=== PATIENT | female | born 1955 | race Caucasian/White ===

== ENCOUNTER 2019-07-05 06:13 | Inpatient (IN) ==
[2019-07-05] MEDS ORDERED: cefOXitin 2,000 MG in Water for inj. (sterile) 20 ML IVP ONE (06:55)
[2019-07-05] MEDS ORDERED: Albuterol 2.5 MG/3 ML NEBULIZER IH ONE (06:55)
[2019-07-05] MEDS ORDERED: Ketorolac 30 MG/ML VIAL IVP ONE (06:56)
[2019-07-05] MEDS ORDERED: Ringers Solution, Lactated 1,000 ML IVC SCH (07:00)
[2019-07-05] MEDS ORDERED: *HR* Midazolam HCl 2 MG/2 ML VIAL ONE (07:32)
[2019-07-05] MEDS ORDERED: *HR* FentaNYL (PF) 100 MCG/2 ML VIAL ONE (07:32)
[2019-07-05] MEDS ORDERED: *HR* Propofol 200 MG/20 ML VIAL IVP ONE (07:32)
--- NOTE | 2019-07-05 07:45 | History & Physical Report ---
Date of Encounter: 07/05/19 Time of Encounter: 07:45 24 Hour HP Update - Instructions Instructions: If the History and Physical is less than 30 days old and was completed prior to A.M. admission and or procedure and has NOT been updated on calendar day of procedure please complete this update prior to performing procedure. - Update Patient reports changes in Medical Condition: No Changes in examination, assessment, or condition: No Changes in Medication: No Preop tests/diagnostics Reviewed: Yes Pre-Op MRSA Screen: Negative Surgery Remains Indicated: Yes Consent for Planned Operative Procedure(s) Verified: Yes - Pre-Operative Checklist Preoperative Checklist Indicated: Yes Prophylactic Antibiotic Ordered: Yes Home Medications Include Beta Savanna: No Beta Savanna Taken Today (Day of Surgery): No Beta Savanna Taken Yesterday (Day Prior to Surgery): No Is VTE Prophylaxis Indicated?: Yes
[2019-07-05] MEDS ORDERED: Pregabalin 75 MG CAPSULE PO ONE (08:02)
[2019-07-05] MEDS ORDERED: Scopolamine Patch 1.5 MG PATCH.TD72 TD ONE (08:02)
[2019-07-05] MEDS ORDERED: Famotidine 20 MG/2 ML VIAL IVP ONE (08:02)
[2019-07-05] MEDS ORDERED: traMADol 50 MG TABLET PO ONE (08:02)
[2019-07-05] MEDS ORDERED: Celecoxib 200 MG CAPSULE PO ONE (08:02)
[2019-07-05] MEDS ORDERED: Acetaminophen IV 1,000 MG/100 ML INFUS..BTL IVPB ONE (08:03)
--- NOTE | 2019-07-05 08:16 | Anesthesia Evaluation PreOp ---
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: Other (Anxiety/Depression) Other Medical History: Other (Breast Ca s/p Radiation Tx - last Tx 2015) Anesthesia History: No Prior Anesthetic Complications (]), Past Anesthesia (B- breast lumpectomies, L-TKR, Uterine polyp excision, Tubal,) Alcohol Use: none Drug use: none Medications and Allergies Gabapentin [Gralise] 300 mg PO TID 07/25/15 [History] Lisinopril/Hydrochlorothiazide [Zestoretic 20-25 mg Tablet] 1 tab PO DAILY 07/25/15 [History] Pravastatin Sodium [Pravachol] 40 mg PO DAILY 07/25/15 [History] traZODone [TraZODone] 100 mg PO HS 07/25/15 [History] Furosemide [Lasix] 20 mg PO BID 09/01/17 [History] Oxygen 2 l NS DAILY 09/01/17 [History] Albuterol Sulfate [Ventolin Hfa] 2 puff IH Q6H PRN 09/27/17 [History] Aspirin [Lo-Dose Aspirin EC] 81 mg PO DAILY 07/05/19 [History] Magnesium Oxide [Mag-Oxide Magnesium] 400 mg PO BID 07/05/19 [History] Venlafaxine XR (24 HR) [Effexor XR] 150 mg PO DAILY 07/05/19 [History] Allergy/AdvReac Type Severity Reaction Status Date / Time No Known Allergies Allergy Verified 07/05/19 07:08 - Meds/Allergy Pre-op Review Medications Reviewed: Yes Allergies Reviewed: Yes Beta Blockers on Current Med List: No Anesthesia Results - Labs Laboratory Tests 06/15/19 06/15/19 13:40 13:40 Hgb 14.2 Potassium 4.0 - Imaging EKG: report reviewed (92bpm - SINUS RHYTHM Electronically Signed On 06-16-2019 19:58:47 EDT by Darien [place]) Additional studies: ECHO 06/01/2017 Impressions: LVEF 60%. Normal left ventricular size and systolic function. There is evidence of mild diastolic dysfunction of the left ventricle. Normal right ventricular size and function. No significant valvular dysfunction. No pulmonary hypertension. Left Ventricular Wall Motion: Rest Echo Findings All wall segments showed normal motion. 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 Cabrera Angel MD
[2019-07-05] MEDS ORDERED: Dexamethasone 4 MG/ML VIAL ONE (08:22)
[2019-07-05] MEDS ORDERED: Ondansetron 4 MG/2 ML VIAL ONE ×2 (08:22→09:38)
[2019-07-05] MEDS ORDERED: Lidocaine -MPF 2% 2 ML VIAL ONE (08:22)
[2019-07-05] MEDS ORDERED: Lidocaine HCL 4 ML Topical Solution (Laryng-O-Jet Kit Sterile Pak) TP ONE (08:22)
[2019-07-05] MEDS ORDERED: *HR* Morphine Sulfate/PF 10 MG/10 ML AMPUL ONE (08:24)
[2019-07-05] MEDS ORDERED: *HR* HYDROMORPHONE 2 MG/ML VIAL ONE (09:22)
[2019-07-05] MEDS ORDERED: *HR* Succinylcholine 200 MG/10 ML VIAL IVP ONE (09:37)
[2019-07-05] MEDS ORDERED: Neostigmine Methylsulfate 3 MG/3 ML SYRINGE ONE (10:24)
[2019-07-05] MEDS ORDERED: Ketorolac 30 MG/ML VIAL ONE (10:45)
[2019-07-05] MEDS ORDERED: Ipratropium/Albuterol Neb 3 ML IH ONE (10:58)
[2019-07-05] MEDS ORDERED: Ipratropium/Albuterol Neb 3 ML ONE (10:59)
--- NOTE | 2019-07-05 11:08 | OB/GYN Procedure Note ---
Hysterectomy - Diagnosis Date of procedure: 07/05/19 Hysterectomy pre-op: symptomatic leiomyomata Post-op diagnosis: same - Procedure Hysterectomy procedure: total abdominal hysterectomy, bilateral salpingo- oophorectomy, right salpingo oophorectomy Surgeon: Fe Waterman Was there an executive administrative assistant present: Yes Software Development Analyst: Jeannette Fontanez (Assisting for teaching purposes) Anesthesia Type: General Estimated blood loss (cc): 200 Complications: none Fluids: crystalloid Specimens: right ovary, uterus, left ovary, other (Partial cervix) Disposition: floor Narrative: Preoperative diagnosis: Enlarged uterus with symptomatic fibroids, breast cancer postop diagnosis: Same Surgeon: Dr. Waterman Assisting: Dr. Daley for teaching purposes Estimated blood loss: 200 mL Specimen: Uterus, partial uterine cervix, bilateral fallopian tube, bilateral ovaries Findings: Morbid obesity. Enlarged multi-fibroid uterus. Left adnexal adhesions. Procedure: Amber was taken to the operating suite and after adequate general anesthesia was a performed she was prepped and draped in the general sterile fashion. A Pfannenstiel incision was created and taken down through the subcutaneous fat and fascia to rectus muscles. The peritoneum was not in the midline without consequence to the bowel or bladder. A retractor was placed within the abdominal incision and the bowel was packed away with moist laparotomy sponges. Surgery was complicated by morbid obesity. Inspection of the pelvis was performed and findings were noted as above. Bilateral round ligaments were isolated clamped transected and suture ligated. Bilateral infundibulopelvic ligaments were isolated clamped transected and suture ligated. There were filmy adhesions noted on the left adnexa that were gently reduced. The bladder was released off the lower uterine segment. Bilateral uterine arteries were identified clamped transected and suture ligated. Surgery was being complicated again by morbid obesity. The uterosacral ligaments cardinal and broad ligaments were clamped transected and suture ligated. A partial supracervical hysterectomy was performed because of the difficulty with visualization of the pelvis and she had no history of abnormal Pap findings. The uterus was amputated using interrupted clamps and sutures. Excellent hemostasis was maintained. The uterosacral ligaments were attached to bilateral vaginal cuff angles for cuff support. Copious irrigation was performed of the surgical sites were inspected. Hemostasis was assured with combination of interrupted sutures and hemostatic agent. At the end of the procedure all of the instruments were removed. They were counted and ensured to be correct 2. Again copious irrigation was performed. Surgical sites were inspected. Hemostasis was assured. The fascia was closed with PDS. The subcutaneous tissue was reapproximated with interrupted sutures. The skin was closed with blayne. The patient was taken to the postanesthesia care unit in stable condition. We had no intraoperative complications other than her morbid obesity. Again sponge lap needle and a cement counts were all correct 2.
--- NOTE | 2019-07-05 11:55 | Anesthesia Evaluation Post Op ---
Date of Encounter: 07/05/19 Time of Encounter: 11:50 - Vital Signs Vital Signs: Last Vital Signs Temp 97.6 F 07/05/19 11:22 Pulse 100 07/05/19 11:42 Resp 16 07/05/19 11:42 BP 134/63 07/05/19 11:42 Pulse Ox 93 07/05/19 11:42 - Lungs Lungs: Clear Ascult./Percussion - Airway Airway: Non-obstructed - Cardiovascular Regular Rate - Mental Status Mental Status: Alert & Oriented, Answers Appropriately - Pain Pain Scale: 5 Pain Scale used: FatimaRaul (Faces) - Nausea Vomiting Nausea Vomiting: Not Present - Hydration Hydration: Tolerates oral liquids, Ice chips - Discharge PostOp Status: Transfer Patient to floor
[2019-07-05] MEDS ORDERED: Ondansetron 4 MG/2 ML VIAL IVP PRN (12:19)
[2019-07-05] MEDS ORDERED: Sennosides 8.6 MG TABLET PO PRN (12:19)
[2019-07-05] MEDS ORDERED: Naloxone 0.4 MG/ML INJ IVP PRN (12:19)
[2019-07-05] MEDS: Ibuprofen 400 MG TABLET PO SCH ×3 (14:18→21:51)
[2019-07-05] MEDS ORDERED: Ringers Solution, Lactated 1,000 ML ONE (15:16)
[2019-07-05] MEDS ORDERED: ceFAZolin 2,000 MG in Water for inj. (sterile) 10 ML IVP SCH (16:00)
[2019-07-05] MEDS: Ringers Solution, Lactated 1,000 ML IVC SCH (16:10)
[2019-07-05] MEDS: cefOXitin 1,000 MG in Water for inj. (sterile) 10 ML IVP SCH ×2 (16:20→23:32)
[2019-07-05] MEDS: *HR* OxyCODONE/APAP 5/325 TABLET PO PRN ×2 (18:19→22:21)
[2019-07-06] MEDS: Ibuprofen 400 MG TABLET PO SCH ×3 (02:07→11:32)
[2019-07-06] MEDS: Ringers Solution, Lactated 1,000 ML IVC SCH (02:07)
[2019-07-06] MEDS ORDERED: Albuterol 2.5 MG/3 ML NEBULIZER IH ONE (02:12)
[2019-07-06] MEDS: *HR* OxyCODONE/APAP 5/325 TABLET PO PRN (05:55)
--- NOTE | 2019-07-06 06:49 | Discharge Summary ---
Date of Encounter: 07/06/19 Time of Encounter: 06:52 - Discharge Diagnosis (1) Post-operative pain Priority: Primary Status: Acute - Discharge Medications Prescriptions: New OxyCODONE/APAP 5/325 [Percocet 5/325 MG] 1 each PO Q4HR PRN 5 Days #30 tablet PRN Reason: Severe Pain (7-10) Continued Lisinopril/Hydrochlorothiazide [Zestoretic 20-25 mg Tablet] 1 tab PO DAILY Gabapentin [Gralise] 300 mg PO TID Pravastatin Sodium [Pravachol] 40 mg PO DAILY traZODone [TraZODone] 100 mg PO HS Furosemide [Lasix] 20 mg PO BID Oxygen 2 l NS DAILY Albuterol Sulfate [Ventolin Hfa] 2 puff IH Q6H PRN PRN Reason: Dyspnea Aspirin [Lo-Dose Aspirin EC] 81 mg PO DAILY Venlafaxine XR (24 HR) [Effexor XR] 150 mg PO DAILY Magnesium Oxide [Mag-Oxide Magnesium] 400 mg PO BID Home Medications: Gabapentin [Gralise] 300 mg PO TID 07/25/15 [History] Lisinopril/Hydrochlorothiazide [Zestoretic 20-25 mg Tablet] 1 tab PO DAILY 07/25/15 [History] Pravastatin Sodium [Pravachol] 40 mg PO DAILY 07/25/15 [History] traZODone [TraZODone] 100 mg PO HS 07/25/15 [History] Furosemide [Lasix] 20 mg PO BID 09/01/17 [History] Oxygen 2 l NS DAILY 09/01/17 [History] Albuterol Sulfate [Ventolin Hfa] 2 puff IH Q6H PRN 09/27/17 [History] Aspirin [Lo-Dose Aspirin EC] 81 mg PO DAILY 07/05/19 [History] Magnesium Oxide [Mag-Oxide Magnesium] 400 mg PO BID 07/05/19 [History] Venlafaxine XR (24 HR) [Effexor XR] 150 mg PO DAILY 07/05/19 [History] OxyCODONE/APAP 5/325 [Percocet 5/325 MG] 1 each PO Q4HR PRN 5 Days #30 tablet 07/06/19 [Rx] Allergies/Adverse Reactions: Allergy/AdvReac Type Severity Reaction Status Date / Time No Known Allergies Allergy Verified 07/05/19 07:08 Date of admission: 07/05/19 12:02 Primary care physician: Usman Rod MD Discharging clinician: Fe Waterman Anticipated date of discharge: 07/06/19 - Patient Status Disposition: Home, Self-Care Condition: Good Functional capacity at discharge: uses cane/walker Overall status at discharge: patient is progressing back to baseline - Discharge Instructions Follow Up With: Usman Rod MD [Primary Care Provider] - Fe Waterman MD [Partnered Physician] - Additional Instructions: no driving no lifting tylenol, ibuprofen, percocet for pain soft diet until active bowl function fu in office one week take keflex twice per day for five days - Diet and Activity Activity: increase activity as tolerated Diet: advance to your usual diet 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 She was admitted to the hospital for overnight observation. She did very well over the evening. Her catheter was removed. She was voiding without difficulty. She was complaining with a walker. She uses home oxygen was doing the same in the hospital. She was passing gas and tolerating liquids. She was taking pain medicines by mouth. She is discharged home with good support family members there to take care of her. She will follow-up in the office in 1 week have the blayne removed. Upon discharge she was given a prescription for Percocet for continued pain management. She will see use Tylenol and ibuprofen. She was given Keflex for 5 days. She had no intrahospital competitions. Time Attestation: Total time spent providing and/or coordinating discharge services: Time Spent: Greater than 30 minutes Exam - Constitutional Vitals: Temp Pulse Resp BP Pulse Ox 99.1 F 99 20 111/70 91 07/06/19 05:53 07/06/19 05:53 07/06/19 05:53 07/06/19 05:53 07/06/19 05:53 General appearance IM: A&O X 3, pleasant, no acute distress, answers questions appropriately - Respiratory Respiratory exam: Present: CTAB - Cardiovascular Cardiovascular exam IM: Present: RRR - GI/Abdominal GI/Abdominal exam IM: distended, normal bowel sounds, soft Incision: dry, intact - Extremities Exam Extremities exam IM: Present: full ROM, normal inspection - VTE Documentation of Mechanical Device: Intermittent pneumatic compression device
[2019-07-06 08:09] VITALS: BP 115/70
[2019-07-06] MEDS: cefOXitin 1,000 MG in Water for inj. (sterile) 10 ML IVP SCH (08:15)
[2019-07-06] MEDS ORDERED: Simethicone 80 MG TAB.CHEW PO PRN (12:34)
[2019-07-06] MEDS ORDERED: FLU Vac QV 19-20 (6Month+)/PF 0.5 ML SYRINGE IM ONE (16:04)
== END 2019-07-06 16:41 | disposition home or self-care (01) | DRG 519 ==
LOC: SAMDAY 06:13 → 1NENUPED 12:02
PROVIDERS: ADMIT Obstetrics & Gynecology; ATTEND Obstetrics & Gynecology

== ENCOUNTER 2021-08-14 06:32 | Inpatient (IN) ==
[2021-08-14] MEDS ORDERED: Acetaminophen IV 1,000 MG/100 ML BAG IVPB ONE (07:02)
[2021-08-14] MEDS ORDERED: Famotidine 20 MG/2 ML VIAL IVP ONE (07:02)
[2021-08-14] MEDS ORDERED: Gabapentin 300 MG CAPSULE PO ONE (07:02)
[2021-08-14] MEDS ORDERED: CeFAZolin Syr 2,000MG/20 ML 2,000 MG/20 ML SYRINGE IVPB ONE (07:08)
[2021-08-14] MEDS ORDERED: Ondansetron 4 MG/2 ML VIAL IVP PRN ×2 (07:14→12:03)
[2021-08-14] MEDS ORDERED: Ringers Solution, Lactated 1,000 ML IVC SCH (07:15)
[2021-08-14] MEDS ORDERED: *HR* FentaNYL (PF) 100 MCG/2 ML VIAL ONE ×2 (07:26→07:28)
[2021-08-14] MEDS ORDERED: Ondansetron 4 MG/2 ML VIAL ONE (07:26)
[2021-08-14] MEDS ORDERED: Lidocaine HCL 4 ML Topical Solution (Laryng-O-Jet Kit Sterile Pak) TP ONE (07:26)
[2021-08-14] MEDS ORDERED: Lidocaine -MPF 4% 5 ML AMPUL ONE (07:26)
[2021-08-14] MEDS ORDERED: *HR* Midazolam HCl 2 MG/2 ML VIAL ONE (07:26)
[2021-08-14] MEDS ORDERED: *HR* Propofol 200 MG/20 ML VIAL IVP ONE (07:26)
[2021-08-14] MEDS ORDERED: *HR* Vasopressin 20 UNIT/ML VIAL ONE (07:49)
[2021-08-14] MEDS ORDERED: EPHEDrine 50 MG/ML VIAL ONE (09:05)
[2021-08-14] MEDS ORDERED: Albumin Human 5% 25.0 GM/500 ML IV.SOLN ONE (09:13)
[2021-08-14] MEDS ORDERED: Sugammadex Sodium 200 MG/2 ML VIAL IV ONE (09:28)
[2021-08-14] MEDS: *HR* HYDROmorphone (PF) 1 MG/ML SYRINGE ONE ×2 (10:19→10:24)
[2021-08-14] MEDS: *HR* HYDROmorphone PF 0.5 MG/0.5 ML SYRINGE IVP PRN ×2 (10:34→10:47)
[2021-08-14] MEDS ORDERED: Albuterol 2.5 MG/3 ML NEBULIZER ONE (11:06)
[2021-08-14] MEDS ORDERED: Ipratropium/Albuterol Neb 3 ML ONE (11:07)
[2021-08-14] MEDS ORDERED: Ipratropium/Albuterol Neb 3 ML IH ONE (11:08)
[2021-08-14] MEDS ORDERED: Naloxone 0.4 MG/ML INJ IVP PRN (12:03)
[2021-08-14] MEDS: 0.9 % Sodium Chloride 1,000 ML IVC SCH (12:03)
[2021-08-14] MEDS: Albumin Human 5% 12.5 GM/250 ML IV.SOLN IVC SCH ×2 (12:25→16:32)
[2021-08-14] MEDS: Ipratropium/Albuterol Neb 3 ML IH SCH ×4 (14:00→23:45)
[2021-08-14] MEDS: *HR* Heparin 5,000 UNIT/ML VIAL SQ SCH ×2 (16:05→20:35)
[2021-08-14] MEDS: Gabapentin 300 MG CAPSULE PO SCH ×2 (16:05→20:54)
[2021-08-14] MEDS: Famotidine 20 MG TABLET PO SCH (20:35)
[2021-08-14] MEDS: traZODone 50 MG TABLET PO SCH (20:35)
[2021-08-14] MEDS: Sennosides/Docusate Sodium TABLET PO SCH (20:35)
[2021-08-15 00:57] LABS: Hematocrit 37.8 % (35.3-44.9); Hemoglobin 11.6 g/dL (11.5-15.4); Mean Corpuscular HGB Conc 30.7 g/dL (31.6-35.5); Mean Corpuscular Hemoglobin 29.7 pg (28.0-33.3); Mean Corpuscular Volume 96.7 fL (83.0-100.0); Mean Platelet Volume 10.9 fL (9.4-12.4); Platelet Count 224 K/mcL (140-400); Red Blood Count 3.91 M/mcL (3.82-4.97); Red Cell Distribution Width 14.3 % (11.5-14.5); White Blood Count 16.7 K/mcL (4.3-11.1)
[2021-08-15 01:21] LABS: Calcium 7.8 mg/dL (8.6-10.3); Magnesium 1.9 mg/dL (1.6-2.6); Potassium 5.1 mEq/L (3.5-5.1)
[2021-08-15] MEDS: 0.9 % Sodium Chloride 1,000 ML IVC SCH (02:17)
[2021-08-15] MEDS: *HR* OxyCODONE/APAP 7.5/325 TABLET PO PRN ×2 (03:55→12:30)
[2021-08-15] MEDS: Ipratropium/Albuterol Neb 3 ML IH SCH ×6 (04:11→23:04)
[2021-08-15] MEDS: *HR* Heparin 5,000 UNIT/ML VIAL SQ SCH ×3 (06:07→20:27)
[2021-08-15] MEDS: Sennosides/Docusate Sodium TABLET PO SCH ×2 (07:27→20:27)
[2021-08-15] MEDS: Famotidine 20 MG TABLET PO SCH ×2 (07:28→20:27)
[2021-08-15] MEDS: Aspirin Enteric Coated 81 MG Tablet PO SCH (07:28)
[2021-08-15] MEDS: Gabapentin 300 MG CAPSULE PO SCH ×3 (07:28→20:27)
[2021-08-15] MEDS: Venlafaxine XR (24 HR) 75 MG CAP.ER.24H PO SCH (07:28)
[2021-08-15] MEDS ORDERED: 0.9 % Sodium Chloride 1,000 ML IVC SCH (08:46)
[2021-08-15] MEDS: Furosemide 20 MG TABLET PO SCH (16:58)
[2021-08-15] MEDS: traZODone 50 MG TABLET PO SCH (20:27)
[2021-08-16 02:38] LABS: BUN/Creatinine Ratio 23 (6-26); Blood Urea Nitrogen 24 mg/dL (8-23); Calcium 8.1 mg/dL (8.6-10.3); Carbon Dioxide 31 mEq/L (23-29); Chloride 96 mEq/L (98-107); Glucose 142 mg/dL (70-105); Osmolality,Calculated 280 (280-300); Potassium 4.6 mEq/L (3.5-5.1); Sodium 132 mEq/L (136-145); eGFR For African Americans > 60 (> 60); eGFR For Non-African Americans 53 (> 60)
[2021-08-16] MEDS: Ipratropium/Albuterol Neb 3 ML IH SCH ×6 (03:31→23:09)
[2021-08-16] MEDS: *HR* Heparin 5,000 UNIT/ML VIAL SQ SCH ×3 (06:02→19:42)
[2021-08-16] MEDS: Venlafaxine XR (24 HR) 75 MG CAP.ER.24H PO SCH (08:26)
[2021-08-16] MEDS: Famotidine 20 MG TABLET PO SCH ×2 (08:27→19:38)
[2021-08-16] MEDS: Gabapentin 300 MG CAPSULE PO SCH ×3 (08:27→19:38)
[2021-08-16] MEDS: Sennosides/Docusate Sodium TABLET PO SCH ×2 (08:27→19:38)
[2021-08-16] MEDS: Furosemide 20 MG TABLET PO SCH ×2 (08:27→16:17)
[2021-08-16] MEDS: Aspirin Enteric Coated 81 MG Tablet PO SCH (08:27)
[2021-08-16] MEDS: *HR* OxyCODONE/APAP 7.5/325 TABLET PO PRN (08:33)
[2021-08-16] MEDS: traZODone 50 MG TABLET PO SCH (19:38)
[2021-08-17 01:21] LABS: Calcium 8.4 mg/dL (8.6-10.3); Potassium 4.9 mEq/L (3.5-5.1)
[2021-08-17] MEDS: Ipratropium/Albuterol Neb 3 ML IH SCH ×6 (04:09→23:44)
[2021-08-17] MEDS: *HR* Heparin 5,000 UNIT/ML VIAL SQ SCH ×3 (05:03→20:43)
[2021-08-17] MEDS: *HR* OxyCODONE/APAP 7.5/325 TABLET PO PRN ×2 (05:03→20:44)
[2021-08-17] MEDS: Gabapentin 300 MG CAPSULE PO SCH ×3 (07:31→20:44)
[2021-08-17] MEDS: Aspirin Enteric Coated 81 MG Tablet PO SCH (07:31)
[2021-08-17] MEDS: Sennosides/Docusate Sodium TABLET PO SCH ×2 (07:31→20:44)
[2021-08-17] MEDS: Furosemide 20 MG TABLET PO SCH ×2 (07:31→17:51)
[2021-08-17] MEDS: Famotidine 20 MG TABLET PO SCH (07:31)
[2021-08-17] MEDS: Venlafaxine XR (24 HR) 75 MG CAP.ER.24H PO SCH (07:31)
[2021-08-17] MEDS: traZODone 50 MG TABLET PO SCH (20:44)
[2021-08-18 03:27] LABS: Calcium 8.9 mg/dL (8.6-10.3); Potassium 4.8 mEq/L (3.5-5.1)
[2021-08-18] MEDS: Ipratropium/Albuterol Neb 3 ML IH SCH ×6 (03:40→23:59)
[2021-08-18] MEDS: *HR* Heparin 5,000 UNIT/ML VIAL SQ SCH ×3 (06:11→20:28)
[2021-08-18] MEDS: Sennosides/Docusate Sodium TABLET PO SCH ×2 (07:40→20:29)
[2021-08-18] MEDS: Gabapentin 300 MG CAPSULE PO SCH (07:40)
[2021-08-18] MEDS: Furosemide 20 MG TABLET PO SCH ×2 (07:40→17:23)
[2021-08-18] MEDS: Venlafaxine XR (24 HR) 75 MG CAP.ER.24H PO SCH (07:40)
[2021-08-18] MEDS: Famotidine 20 MG TABLET PO SCH (07:40)
[2021-08-18] MEDS: Aspirin Enteric Coated 81 MG Tablet PO SCH (07:40)
[2021-08-18 19:02] LABS: INR 1.2; Prothrombin Time 13.3 Seconds (9.4-12.1)
[2021-08-18 19:34] LABS: Alanine Aminotransferase 20 Units/L (7-52); Albumin 3.3 g/dL (3.5-5.7); Albumin/Globulin Ratio 1.1 (1.1-2.2); Alkaline Phosphatase 74 Units/L (34-104); Aspartate Amino Transferase 33 Units/L (13-39); BUN/Creatinine Ratio 40 (6-26); Bilirubin,Total 0.5 mg/dL (0.3-1.0); Blood Urea Nitrogen 42 mg/dL (8-23); Calcium 8.5 mg/dL (8.6-10.3); Carbon Dioxide 29 mEq/L (23-29); Chloride 99 mEq/L (98-107); Globulin 2.9 g/dL (2.4-3.5); Glucose 156 mg/dL (70-105); Osmolality,Calculated 296 (280-300); Potassium 4.5 mEq/L (3.5-5.1); Sodium 136 mEq/L (136-145); Total Protein 6.2 g/dL (6.4-8.9); eGFR For African Americans > 60 (> 60); eGFR For Non-African Americans 53 (> 60)
[2021-08-18 19:51] LABS: Basophils % 0.2 %; Eosinophils % 0.2 %; Hematocrit 39.5 % (35.3-44.9); Hemoglobin 12.2 g/dL (11.5-15.4); Immature Granulocytes % 0.6 % (0-4); Lymphocytes % 5.5 %; Mean Corpuscular HGB Conc 30.9 g/dL (31.6-35.5); Mean Corpuscular Hemoglobin 29.6 pg (28.0-33.3); Mean Corpuscular Volume 95.9 fL (83.0-100.0); Mean Platelet Volume 11.6 fL (9.4-12.4); Monocytes % 5.8 %; Neutrophils # 15.7 K/mcL (1.6-8.9); Platelet Count 223 K/mcL (140-400); Red Blood Count 4.12 M/mcL (3.82-4.97); Red Cell Distribution Width 14.5 % (11.5-14.5); Segmented Neutrophils % 87.7 %; White Blood Count 17.9 K/mcL (4.3-11.1)
[2021-08-18 19:54] LABS: Troponin I < 0.03 ng/mL (< 0.04)
[2021-08-18] MEDS: Gabapentin 100 MG CAPSULE PO SCH (20:28)
[2021-08-19 02:09] LABS: Hematocrit 37.8 % (35.3-44.9); Hemoglobin 11.9 g/dL (11.5-15.4); Mean Corpuscular HGB Conc 31.5 g/dL (31.6-35.5); Mean Corpuscular Hemoglobin 29.9 pg (28.0-33.3); Platelet Count 246 K/mcL (140-400); Red Blood Count 3.98 M/mcL (3.82-4.97); Red Cell Distribution Width 14.4 % (11.5-14.5); White Blood Count 18.9 K/mcL (4.3-11.1)
[2021-08-19 02:31] LABS: BUN/Creatinine Ratio 46 (6-26); Blood Urea Nitrogen 36 mg/dL (8-23); Calcium 8.5 mg/dL (8.6-10.3); Carbon Dioxide 32 mEq/L (23-29); Chloride 100 mEq/L (98-107); Glucose 127 mg/dL (70-105); Magnesium 2.2 mg/dL (1.6-2.6); Osmolality,Calculated 296 (280-300); Sodium 138 mEq/L (136-145); eGFR For African Americans > 60 (> 60); eGFR For Non-African Americans > 60 (> 60)
[2021-08-19 02:47] LABS: Thyroid Stimulating Hormone 3.361 mcIU/mL (0.340-5.600)
[2021-08-19 02:54] LABS: Estimated Average Glucose 140 mg/dl; Hemoglobin A1C 6.5 %
[2021-08-19] MEDS: Ipratropium/Albuterol Neb 3 ML IH SCH ×5 (04:00→20:07)
[2021-08-19] MEDS: *HR* Heparin 5,000 UNIT/ML VIAL SQ SCH ×3 (06:18→20:39)
[2021-08-19] MEDS: Aspirin Enteric Coated 81 MG Tablet PO SCH (07:15)
[2021-08-19] MEDS: Sennosides/Docusate Sodium TABLET PO SCH ×2 (07:15→20:39)
[2021-08-19] MEDS: Furosemide 20 MG TABLET PO SCH ×2 (07:15→17:01)
[2021-08-19] MEDS: Famotidine 20 MG TABLET PO SCH (07:15)
[2021-08-19] MEDS: Venlafaxine XR (24 HR) 75 MG CAP.ER.24H PO SCH (07:15)
[2021-08-19] MEDS: Gabapentin 100 MG CAPSULE PO SCH ×2 (07:16→20:39)
[2021-08-19] MEDS: Ampicillin/Sulbactam 3,000 MG in 0.9 % Sodium Chloride Mini Bag 100 ML IVPB SCH ×3 (10:10→17:04)
[2021-08-19] MEDS ORDERED: Acetaminophen 325 MG TABLET PO PRN ×2 (16:23→17:01)
[2021-08-20] MEDS: Ampicillin/Sulbactam 3,000 MG in 0.9 % Sodium Chloride Mini Bag 100 ML IVPB SCH ×4 (00:06→18:02)
[2021-08-20 00:42] LABS: Hematocrit 34.4 % (35.3-44.9); Hemoglobin 11.2 g/dL (11.5-15.4); Mean Corpuscular HGB Conc 32.6 g/dL (31.6-35.5); Mean Corpuscular Hemoglobin 29.9 pg (28.0-33.3); Mean Platelet Volume 10.7 fL (9.4-12.4); Platelet Count 227 K/mcL (140-400); Red Blood Count 3.74 M/mcL (3.82-4.97); Red Cell Distribution Width 14.3 % (11.5-14.5); White Blood Count 22.4 K/mcL (4.3-11.1)
[2021-08-20 00:50] LABS: BUN/Creatinine Ratio 38 (6-26); Blood Urea Nitrogen 24 mg/dL (8-23); Calcium 8.2 mg/dL (8.6-10.3); Carbon Dioxide 31 mEq/L (23-29); Chloride 97 mEq/L (98-107); Glucose 144 mg/dL (70-105); Osmolality,Calculated 289 (280-300); Potassium 3.7 mEq/L (3.5-5.1); Sodium 136 mEq/L (136-145); eGFR For African Americans > 60 (> 60); eGFR For Non-African Americans > 60 (> 60)
[2021-08-20] MEDS: Ipratropium/Albuterol Neb 3 ML IH SCH ×7 (03:55→23:11)
[2021-08-20] MEDS: *HR* Heparin 5,000 UNIT/ML VIAL SQ SCH ×3 (06:38→20:41)
[2021-08-20] MEDS: Famotidine 20 MG TABLET PO SCH (08:05)
[2021-08-20] MEDS: Sennosides/Docusate Sodium TABLET PO SCH (08:06)
[2021-08-20] MEDS: Gabapentin 100 MG CAPSULE PO SCH ×2 (08:06→20:41)
[2021-08-20] MEDS: Venlafaxine XR (24 HR) 75 MG CAP.ER.24H PO SCH (08:06)
[2021-08-20] MEDS: Aspirin Enteric Coated 81 MG Tablet PO SCH (08:06)
[2021-08-20] MEDS: Furosemide 20 MG TABLET PO SCH ×2 (08:06→18:02)
[2021-08-20] MEDS: lisinopriL 10 MG TABLET PO SCH (11:03)
[2021-08-20 13:07] LABS: Bacteria,Urine Few per hpf (None-Few); Bilirubin,Urine Negative (Negative); Blood,Urine Moderate (Negative); Clarity,Urine Clear (Clear); Color,Urine Yellow (Yellow); Glucose,Urine (UA) Normal (Normal); Ketones,Urine Negative (Negative); Leukocyte Esterase,Urine Negative (Negative); Nitrite,Urine Negative (Negative); Protein,Urine 50 mg/dL (Neg-Trace); Specific Gravity,Urine > 1.030 (1.010-1.025); Squamous Epithelial Cell,Urine Few per hpf (None-Few); Urobilinogen,Urine Normal (Normal); WBC,Urine 0-3 per hpf (0-3)
[2021-08-21] MEDS: Ampicillin/Sulbactam 3,000 MG in 0.9 % Sodium Chloride Mini Bag 100 ML IVPB SCH ×5 (01:11→23:47)
[2021-08-21 01:37] LABS: Hematocrit 32.8 % (35.3-44.9); Hemoglobin 10.7 g/dL (11.5-15.4); Mean Corpuscular HGB Conc 32.6 g/dL (31.6-35.5); Mean Corpuscular Hemoglobin 30.1 pg (28.0-33.3); Mean Corpuscular Volume 92.1 fL (83.0-100.0); Mean Platelet Volume 11.7 fL (9.4-12.4); Platelet Count 226 K/mcL (140-400); Red Blood Count 3.56 M/mcL (3.82-4.97); Red Cell Distribution Width 14.4 % (11.5-14.5); White Blood Count 24.3 K/mcL (4.3-11.1)
[2021-08-21 01:41] LABS: BUN/Creatinine Ratio 29 (6-26); Blood Urea Nitrogen 17 mg/dL (8-23); Calcium 8.1 mg/dL (8.6-10.3); Carbon Dioxide 32 mEq/L (23-29); Chloride 95 mEq/L (98-107); Glucose 100 mg/dL (70-105); Osmolality,Calculated 282 (280-300); Potassium 3.6 mEq/L (3.5-5.1); Sodium 135 mEq/L (136-145); eGFR For African Americans > 60 (> 60); eGFR For Non-African Americans > 60 (> 60)
[2021-08-21] MEDS: Ipratropium/Albuterol Neb 3 ML IH SCH ×6 (03:53→23:35)
[2021-08-21] MEDS: *HR* Heparin 5,000 UNIT/ML VIAL SQ SCH ×3 (05:39→20:56)
[2021-08-21] MEDS: Furosemide 20 MG TABLET PO SCH ×2 (08:24→15:39)
[2021-08-21] MEDS: Venlafaxine XR (24 HR) 75 MG CAP.ER.24H PO SCH (08:24)
[2021-08-21] MEDS: Gabapentin 100 MG CAPSULE PO SCH ×2 (08:24→20:54)
[2021-08-21] MEDS: lisinopriL 10 MG TABLET PO SCH (08:24)
[2021-08-21] MEDS: Aspirin Enteric Coated 81 MG Tablet PO SCH (08:25)
[2021-08-21] MEDS: Famotidine 20 MG TABLET PO SCH (08:27)
[2021-08-21] MEDS: *HR* Amiodarone 200 MG TABLET PO SCH (20:54)
[2021-08-22 00:47] LABS: Hematocrit 31.6 % (35.3-44.9); Hemoglobin 10.4 g/dL (11.5-15.4); Mean Corpuscular HGB Conc 32.9 g/dL (31.6-35.5); Mean Corpuscular Volume 91.1 fL (83.0-100.0); Mean Platelet Volume 10.9 fL (9.4-12.4); Platelet Count 257 K/mcL (140-400); Red Blood Count 3.47 M/mcL (3.82-4.97); Red Cell Distribution Width 14.3 % (11.5-14.5); White Blood Count 20.7 K/mcL (4.3-11.1)
[2021-08-22 01:07] LABS: BUN/Creatinine Ratio 22 (6-26); Blood Urea Nitrogen 14 mg/dL (8-23); Calcium 7.7 mg/dL (8.6-10.3); Carbon Dioxide 31 mEq/L (23-29); Chloride 94 mEq/L (98-107); Glucose 111 mg/dL (70-105); Osmolality,Calculated 279 (280-300); Potassium 3.6 mEq/L (3.5-5.1); Sodium 134 mEq/L (136-145); eGFR For African Americans > 60 (> 60); eGFR For Non-African Americans > 60 (> 60)
[2021-08-22] MEDS: Ipratropium/Albuterol Neb 3 ML IH SCH ×6 (03:42→23:40)
[2021-08-22] MEDS: Ampicillin/Sulbactam 3,000 MG in 0.9 % Sodium Chloride Mini Bag 100 ML IVPB SCH ×3 (06:47→21:09)
[2021-08-22] MEDS: *HR* Heparin 5,000 UNIT/ML VIAL SQ SCH ×3 (06:50→21:07)
[2021-08-22] MEDS: Venlafaxine XR (24 HR) 75 MG CAP.ER.24H PO SCH (08:12)
[2021-08-22] MEDS: Furosemide 20 MG TABLET PO SCH ×2 (08:12→16:33)
[2021-08-22] MEDS: *HR* Amiodarone 200 MG TABLET PO SCH ×2 (08:12→21:07)
[2021-08-22] MEDS: Famotidine 20 MG TABLET PO SCH (08:12)
[2021-08-22] MEDS: lisinopriL 10 MG TABLET PO SCH (08:12)
[2021-08-22] MEDS: Gabapentin 100 MG CAPSULE PO SCH ×2 (08:13→21:07)
[2021-08-22] MEDS: Aspirin Enteric Coated 81 MG Tablet PO SCH (08:13)
[2021-08-22] MEDS ORDERED: Furosemide 20 MG/2 ML VIAL IVP ONE (09:54)
[2021-08-23 00:52] LABS: Hematocrit 31.8 % (35.3-44.9); Hemoglobin 10.1 g/dL (11.5-15.4); Mean Corpuscular HGB Conc 31.8 g/dL (31.6-35.5); Mean Corpuscular Hemoglobin 29.1 pg (28.0-33.3); Mean Corpuscular Volume 91.6 fL (83.0-100.0); Mean Platelet Volume 10.9 fL (9.4-12.4); Platelet Count 267 K/mcL (140-400); Red Blood Count 3.47 M/mcL (3.82-4.97); Red Cell Distribution Width 14.5 % (11.5-14.5); White Blood Count 21.5 K/mcL (4.3-11.1)
[2021-08-23] MEDS: Ampicillin/Sulbactam 3,000 MG in 0.9 % Sodium Chloride Mini Bag 100 ML IVPB SCH ×3 (01:04→09:55)
[2021-08-23 01:11] LABS: BUN/Creatinine Ratio 20 (6-26); Blood Urea Nitrogen 14 mg/dL (8-23); Calcium 7.8 mg/dL (8.6-10.3); Carbon Dioxide 33 mEq/L (23-29); Chloride 93 mEq/L (98-107); Glucose 115 mg/dL (70-105); Osmolality,Calculated 277 (280-300); Potassium 3.6 mEq/L (3.5-5.1); Sodium 133 mEq/L (136-145); eGFR For African Americans > 60 (> 60); eGFR For Non-African Americans > 60 (> 60)
[2021-08-23] MEDS: Ipratropium/Albuterol Neb 3 ML IH SCH ×5 (03:58→20:00)
[2021-08-23] MEDS: *HR* Heparin 5,000 UNIT/ML VIAL SQ SCH ×3 (04:51→21:51)
[2021-08-23] MEDS: Furosemide 20 MG TABLET PO SCH ×2 (09:55→15:57)
[2021-08-23] MEDS: lisinopriL 10 MG TABLET PO SCH (09:55)
[2021-08-23] MEDS: Gabapentin 100 MG CAPSULE PO SCH ×2 (09:55→20:07)
[2021-08-23] MEDS: Aspirin Enteric Coated 81 MG Tablet PO SCH (09:55)
[2021-08-23] MEDS: Venlafaxine XR (24 HR) 75 MG CAP.ER.24H PO SCH (09:55)
[2021-08-23] MEDS: Famotidine 20 MG TABLET PO SCH (09:55)
[2021-08-23] MEDS: *HR* Amiodarone 200 MG TABLET PO SCH ×2 (09:55→20:06)
[2021-08-24] MEDS: Ipratropium/Albuterol Neb 3 ML IH SCH ×7 (00:30→23:47)
[2021-08-24 02:37] LABS: Basophils # 0.2 K/mcL (0.0-0.2); Basophils % 0.8 %; Eosinophils # 0.5 K/mcL (0.0-0.6); Eosinophils % 2.4 %; Hematocrit 29.5 % (35.3-44.9); Hemoglobin 9.4 g/dL (11.5-15.4); Immature Granulocytes % 5.1 % (0-4); Lymphocytes % 9.7 %; Mean Corpuscular HGB Conc 31.9 g/dL (31.6-35.5); Mean Corpuscular Hemoglobin 29.3 pg (28.0-33.3); Mean Corpuscular Volume 91.9 fL (83.0-100.0); Mean Platelet Volume 10.9 fL (9.4-12.4); Monocytes # 1.3 K/mcL (0.0-1.3); Monocytes % 6.4 %; Neutrophils # 15.3 K/mcL (1.6-8.9); Platelet Count 265 K/mcL (140-400); Red Blood Count 3.21 M/mcL (3.82-4.97); Red Cell Distribution Width 14.2 % (11.5-14.5); Segmented Neutrophils % 75.6 %; White Blood Count 20.2 K/mcL (4.3-11.1)
[2021-08-24 03:00] LABS: BUN/Creatinine Ratio 17 (6-26); Blood Urea Nitrogen 11 mg/dL (8-23); Calcium 7.8 mg/dL (8.6-10.3); Carbon Dioxide 32 mEq/L (23-29); Chloride 95 mEq/L (98-107); Glucose 111 mg/dL (70-105); Osmolality,Calculated 278 (280-300); Potassium 3.5 mEq/L (3.5-5.1); Sodium 134 mEq/L (136-145); eGFR For African Americans > 60 (> 60); eGFR For Non-African Americans > 60 (> 60)
[2021-08-24 04:09] LABS: Hypochromasia Present (Not Present); Platelet Estimate Normal (Normal)
[2021-08-24] MEDS: *HR* Heparin 5,000 UNIT/ML VIAL SQ SCH ×3 (06:22→20:41)
[2021-08-24] MEDS: Gabapentin 100 MG CAPSULE PO SCH ×2 (07:57→20:41)
[2021-08-24] MEDS: *HR* Amiodarone 200 MG TABLET PO SCH ×2 (07:57→20:41)
[2021-08-24] MEDS: Furosemide 20 MG TABLET PO SCH ×2 (07:58→16:22)
[2021-08-24] MEDS: lisinopriL 10 MG TABLET PO SCH (07:58)
[2021-08-24] MEDS: Famotidine 20 MG TABLET PO SCH (07:58)
[2021-08-24] MEDS: Aspirin Enteric Coated 81 MG Tablet PO SCH (07:58)
[2021-08-24] MEDS: Venlafaxine XR (24 HR) 75 MG CAP.ER.24H PO SCH (07:58)
[2021-08-24] MEDS ORDERED: Fosfomycin Tromethamine 3 GM Packet PO ONE (17:30)
[2021-08-25] MEDS: Ipratropium/Albuterol Neb 3 ML IH SCH ×3 (03:46→11:24)
[2021-08-25 05:09] LABS: Hematocrit 30.2 % (35.3-44.9); Hemoglobin 9.4 g/dL (11.5-15.4); Mean Corpuscular HGB Conc 31.1 g/dL (31.6-35.5); Mean Corpuscular Volume 93.2 fL (83.0-100.0); Mean Platelet Volume 11.1 fL (9.4-12.4); Platelet Count 289 K/mcL (140-400); Red Blood Count 3.24 M/mcL (3.82-4.97); Red Cell Distribution Width 14.4 % (11.5-14.5)
[2021-08-25 05:29] LABS: Eosinophils # 0.4 K/mcL (0.0-0.6); Lymphocytes # 2.9 K/mcL (0.6-4.6); Monocytes # 1.5 K/mcL (0.0-1.3); Neutrophils # 13.1 K/mcL (1.6-8.9); Platelet Estimate Normal (Normal); Toxic Granulation Present (Not Present)
[2021-08-25 05:30] LABS: Smudge Cells Present (Not Present)
[2021-08-25] MEDS: *HR* Heparin 5,000 UNIT/ML VIAL SQ SCH (06:50)
[2021-08-25] MEDS: Famotidine 20 MG TABLET PO SCH (08:36)
[2021-08-25] MEDS: Aspirin Enteric Coated 81 MG Tablet PO SCH (08:36)
[2021-08-25] MEDS: Venlafaxine XR (24 HR) 75 MG CAP.ER.24H PO SCH (08:38)
[2021-08-25] MEDS: Furosemide 20 MG TABLET PO SCH (08:38)
[2021-08-25] MEDS: *HR* Amiodarone 200 MG TABLET PO SCH (08:38)
[2021-08-25] MEDS: Gabapentin 100 MG CAPSULE PO SCH (08:38)
[2021-08-25] MEDS: lisinopriL 10 MG TABLET PO SCH (09:57)
[2021-08-25 11:21] VITALS: BP 121/76; PULSE 72; TEMP 97.6
[2021-08-25] MEDS ORDERED: FLU Vac QV 21-22 (6Month+)/PF 0.5 ML SYRINGE IM ONE (11:57)
[2021-08-25 12:00] VITALS: O2SAT 98
== END 2021-08-25 12:32 | disposition home or self-care (01) | DRG 121 ==
LOC: SAMDAY 06:32 → 2NNU 11:47
PROVIDERS: ADMIT Thoracic Surgery (Cardiothoracic Vascular Surgery); ATTEND Thoracic Surgery (Cardiothoracic Vascular Surgery)

== ENCOUNTER 2022-06-15 13:40 | Inpatient (IN) ==
[2022-06-15] MEDS: 0.9 % Sodium Chloride 1,000 ML IVC SCH ×3 (14:00→21:51)
[2022-06-15] MEDS ORDERED: 0.9 % Sodium Chloride 1,000 ML ONE (14:35)
[2022-06-15] MEDS ORDERED: 0.9 % Sodium Chloride 1,000 ML IVC ONE (14:36)
[2022-06-15 15:00] LABS: Hematocrit 32.4 % (35.3-44.9); Mean Corpuscular HGB Conc 30.9 g/dL (31.6-35.5); Mean Corpuscular Hemoglobin 28.6 pg (28.0-33.3); Mean Corpuscular Volume 92.6 fL (83.0-100.0); Mean Platelet Volume 10.9 fL (9.4-12.4); Platelet Count 175 K/mcL (140-400); Red Cell Distribution Width 14.6 % (11.5-14.5); White Blood Count 3.2 K/mcL (4.3-11.1)
[2022-06-15 15:13] LABS: Albumin 3.6 g/dL (3.5-5.7); Bilirubin,Total 0.4 mg/dL (0.3-1.0); Calcium 8.9 mg/dL (8.6-10.3); Globulin 3.6 g/dL (2.4-3.5); Magnesium 2.4 mg/dL (1.6-2.6); Phosphorous 2.4 mg/dL (2.7-4.5); Potassium 4.7 mEq/L (3.5-5.1); Total Protein 7.2 g/dL (6.4-8.9)
[2022-06-15] MEDS ORDERED: Norepinephrine 4 MG/254 ML IV.SOLN IVC ONE (15:16)
[2022-06-15] MEDS: Norepinephrine 4 MG/254 ML IV.SOLN IVC SCH ×2 (15:34→22:50)
[2022-06-15 16:05] LABS: Lymphocytes # 1.3 K/mcL (0.6-4.6); Monocytes # 0.1 K/mcL (0.0-1.3); Neutrophils # 1.8 K/mcL (1.6-8.9); Smudge Cells Present (Not Present)
[2022-06-15 16:06] LABS: Dohle Bodies Present (Not Present)
[2022-06-15] MEDS ORDERED: Piperacillin/Tazobactam 3.375 GM in 0.9 % Sodium Chloride Mini Bag 100 ML IVPB ONE (16:29)
[2022-06-15 16:44] LABS: Troponin I < 0.03 ng/mL (< 0.04)
[2022-06-15 16:54] LABS: Thyroid Stimulating Hormone 6.953 mcIU/mL (0.340-5.600)
[2022-06-15] MEDS ORDERED: Vancomycin 1,500 MG/265 ML IV.SOLN IVPB ONE (17:00)
[2022-06-15] MEDS ORDERED: Acetaminophen 325 MG TABLET PO PRN (17:16)
[2022-06-15] MEDS ORDERED: Naloxone 0.4 MG/ML INJ IVP PRN (17:16)
[2022-06-15] MEDS ORDERED: Ondansetron 4 MG/2 ML VIAL IVP PRN (17:21)
[2022-06-15 17:29] LABS: Amorphous Sediment,Urine Few per hpf (None-Few); Bilirubin,Urine Negative (Negative); Blood,Urine Moderate (Negative); Clarity,Urine Turbid (Clear); Color,Urine Yellow (Yellow); Glucose,Urine (UA) Normal (Normal); Ketones,Urine Negative (Negative); Leukocyte Esterase,Urine Negative (Negative); Mucus,Urine Few per lpf (None-Few); Nitrite,Urine Negative (Negative); PH,Urine 5.5 pH Units (5.0-8.0); Protein,Urine 50 mg/dL (Neg-Trace); RBC,Urine 0-3 per hpf (0-3); Specific Gravity,Urine 1.011 (1.010-1.025); Squamous Epithelial Cell,Urine Few per hpf (None-Few); Urobilinogen,Urine Normal (Normal); WBC,Urine 0-3 per hpf (0-3)
[2022-06-15 17:30] LABS: Amphetamine Screen,Urine Negative ng/mL (Cutoff=1000); Barbiturate Screen,Urine Negative ng/mL (Cutoff=200); Benzodiazepines Screen,Urine Negative ng/mL (Cutoff=200); Cannabinoid Screen,Urine Negative ng/mL (Cutoff = 50); Cocaine Screen,Urine Negative ng/mL (Cutoff= 300); Opiate Screen,Urine Negative ng/mL (Cutoff=300); Phencyclidine Screen,Urine Negative ng/mL (Cutoff=25)
[2022-06-15 17:59] LABS: Influenza A PCR Negative (Negative); Influenza B PCR Negative (Negative); Resp. Syncytial Virus PCR Negative (Negative)
[2022-06-15 18:00] LABS: SARS-CoV-2 by PCR (In House) Negative (Negative)
[2022-06-15] MEDS: Ipratropium 1 PUFF INHALER IH SCH ×2 (20:50→23:52)
[2022-06-15] MEDS: Pantoprazole 40 MG VIAL IVP SCH (21:26)
[2022-06-15 21:40] LABS: Adenovirus Not Detected (Not Detect); Bordetella Pertussis Not Detected (Not Detect); Chlamydophila pneumoniae Not Detected (Not Detect); Coronavirus 229E Not Detected (Not Detect); Coronavirus HKU1 Not Detected (Not Detect); Coronavirus NL63 Not Detected (Not Detect); Coronavirus OC43 Not Detected (Not Detect); Human Metapneumovirus Not Detected (Not Detect); Human Rhinovirus/Enterovirus Not Detected (Not Detect); Influenza A Subtype 2009 H1 Not Detected (Not Detect); Influenza B Not Detected (Not Detect); Mycoplasma pneumoniae Not Detected (Not Detect); Parainfluenza Virus 1 Not Detected (Not Detect); Parainfluenza Virus 2 Not Detected (Not Detect); Parainfluenza Virus 3 Not Detected (Not Detect); Parainfluenza Virus 4 Not Detected (Not Detect); Respiratory Syncytial Virus Not Detected (Not Detect); SARS-CoV-2 Not Detected (Not Detect)
[2022-06-15] MEDS ORDERED: Ringers Solution, Lactated 1,000 ML IVC SCH (22:00)
[2022-06-15 22:22] LABS: Amorphous Sediment,Urine Few per hpf (None-Few); Bacteria,Urine Few per hpf (None-Few); Bilirubin,Urine Negative (Negative); Blood,Urine Moderate (Negative); Clarity,Urine Turbid (Clear); Color,Urine Light-Yellow (Yellow); Glucose,Urine (UA) 70 mg/dL (Normal); Ketones,Urine Negative (Negative); Leukocyte Esterase,Urine Trace (Negative); Mucus,Urine Few per lpf (None-Few); Nitrite,Urine Negative (Negative); PH,Urine 5.5 pH Units (5.0-8.0); Protein,Urine 30 mg/dL (Neg-Trace); Specific Gravity,Urine 1.012 (1.010-1.025); Squamous Epithelial Cell,Urine Few per hpf (None-Few); Urobilinogen,Urine Normal (Normal)
[2022-06-15] MEDS: *HR* Heparin 5,000 UNIT/ML VIAL SQ SCH (23:05)
[2022-06-16 03:55] LABS: Hematocrit 28.3 % (35.3-44.9); Hemoglobin 8.7 g/dL (11.5-15.4); Mean Corpuscular HGB Conc 30.7 g/dL (31.6-35.5); Mean Corpuscular Hemoglobin 28.3 pg (28.0-33.3); Mean Corpuscular Volume 92.2 fL (83.0-100.0); Mean Platelet Volume 10.7 fL (9.4-12.4); Platelet Count 162 K/mcL (140-400); Red Blood Count 3.07 M/mcL (3.82-4.97); White Blood Count 3.6 K/mcL (4.3-11.1)
[2022-06-16] MEDS: Ipratropium 1 PUFF INHALER IH SCH ×5 (04:11→20:49)
[2022-06-16 04:15] LABS: Calcium 7.7 mg/dL (8.6-10.3); Magnesium 2.4 mg/dL (1.6-2.6); Phosphorous 3.4 mg/dL (2.7-4.5); Potassium 4.9 mEq/L (3.5-5.1)
[2022-06-16 04:32] LABS: Hypochromasia Present (Not Present); Neutrophils # 2.5 K/mcL (1.6-8.9); Platelet Estimate Normal (Normal); Reactive Lymphocytes Present (Not Present)
[2022-06-16] MEDS: Piperacillin/Tazobactam 3.375 GM in 0.9 % Sodium Chloride Mini Bag 100 ML IVPB SCH ×2 (05:52→17:35)
[2022-06-16] MEDS: *HR* Heparin 5,000 UNIT/ML VIAL SQ SCH ×2 (08:10→15:34)
[2022-06-16] MEDS: Pantoprazole 40 MG VIAL IVP SCH (08:11)
[2022-06-16] MEDS: Calcium Gluconate 1gm/50mL 1 GM/50 ML BAG IVPB SCH ×2 (08:11→09:11)
[2022-06-16] MEDS ORDERED: Albumin 25% 25gram/100mL 25 GM/100 ML IV.SOLN IVPB ONE (09:12)
[2022-06-16] MEDS: Hydrocortisone Sodium Succ 100 MG/2 ML VIAL IVP SCH ×2 (10:58→17:35)
[2022-06-16] MEDS ORDERED: Hydrocortisone Sodium Succ 100 MG/2 ML VIAL IVP SCH (16:00)
[2022-06-16] MEDS ORDERED: Potassium Phosphate 44 MEQ in 0.9 % Sodium Chloride 250 ML IVPB PRN (17:46)
[2022-06-17] MEDS: Ipratropium 1 PUFF INHALER IH SCH ×7 (00:17→23:39)
[2022-06-17] MEDS: *HR* Heparin 5,000 UNIT/ML VIAL SQ SCH ×4 (00:29→23:34)
[2022-06-17] MEDS: Hydrocortisone Sodium Succ 100 MG/2 ML VIAL IVP SCH ×3 (01:17→16:49)
[2022-06-17] MEDS: Norepinephrine 4 MG/254 ML IV.SOLN IVC SCH ×2 (01:17→05:32)
[2022-06-17] MEDS: Piperacillin/Tazobactam 3.375 GM in 0.9 % Sodium Chloride Mini Bag 100 ML IVPB SCH ×2 (05:32→22:20)
[2022-06-17] MEDS: Pantoprazole 40 MG VIAL IVP SCH (07:36)
[2022-06-17] MEDS ORDERED: Piperacillin/Tazobactam 3.375 GM in 0.9 % Sodium Chloride Mini Bag 100 ML IVPB SCH (14:00)
[2022-06-17 16:08] LABS: VBG Ionized Calcium 1.11 mmol/L (1.15-1.35)
[2022-06-17 16:21] LABS: Hematocrit 27.6 % (35.3-44.9); Hemoglobin 8.5 g/dL (11.5-15.4); Mean Corpuscular HGB Conc 30.8 g/dL (31.6-35.5); Mean Corpuscular Hemoglobin 28.6 pg (28.0-33.3); Mean Corpuscular Volume 92.9 fL (83.0-100.0); Mean Platelet Volume 11.1 fL (9.4-12.4); Platelet Count 116 K/mcL (140-400); Red Blood Count 2.97 M/mcL (3.82-4.97); Red Cell Distribution Width 15.4 % (11.5-14.5); White Blood Count 4.5 K/mcL (4.3-11.1)
[2022-06-17 16:25] LABS: Calcium 8.8 mg/dL (8.6-10.3); Magnesium 2.3 mg/dL (1.6-2.6); Phosphorous 2.6 mg/dL (2.7-4.5); Potassium 4.3 mEq/L (3.5-5.1)
[2022-06-17 16:54] LABS: Lymphocytes # 2.4 K/mcL (0.6-4.6); Monocytes # 0.7 K/mcL (0.0-1.3); Neutrophils # 1.4 K/mcL (1.6-8.9); Platelet Estimate Decreased (Normal); Reactive Lymphocytes Present (Not Present)
[2022-06-17] MEDS ORDERED: Naloxone 0.4 MG/ML INJ IVP PRN (18:54)
[2022-06-17] MEDS ORDERED: Ondansetron 4 MG/2 ML VIAL IVP PRN (18:54)
[2022-06-17] MEDS ORDERED: Ipratropium/Albuterol Neb 3 ML IH PRN (18:54)
[2022-06-17] MEDS ORDERED: Acetaminophen 325 MG TABLET PO PRN (18:54)
[2022-06-17] MEDS: Budesonide/Formoterol 160/4.5 1 PUFF INH IH SCH (20:11)
[2022-06-17] MEDS ORDERED: traZODone 50 MG TABLET PO SCH (21:00)
[2022-06-18] MEDS: Ipratropium 1 PUFF INHALER IH SCH ×4 (03:43→15:38)
[2022-06-18] MEDS: Piperacillin/Tazobactam 3.375 GM in 0.9 % Sodium Chloride Mini Bag 100 ML IVPB SCH ×2 (05:22→17:27)
[2022-06-18] MEDS: Budesonide/Formoterol 160/4.5 1 PUFF INH IH SCH (08:06)
[2022-06-18] MEDS: *HR* Heparin 5,000 UNIT/ML VIAL SQ SCH ×2 (08:41→17:28)
[2022-06-18] MEDS ORDERED: Venlafaxine XR (24 HR) 150 MG CAP.ER.24H PO SCH (09:00)
[2022-06-18 12:01] VITALS: TEMP 98.6
[2022-06-18] MEDS ORDERED: Iopamidol - 370 500 ML MLS IVP ONE (12:17)
[2022-06-18 17:31] VITALS: BP 114/55; PULSE 99; O2SAT 95
== END 2022-06-18 18:55 | disposition home or self-care (01) | DRG 720 ==
LOC: ICNU 13:40 → EMEROOARM 13:40 → ICNU 20:15
PROVIDERS: ADMIT Pediatrics; ATTEND Pediatrics